=== PATIENT | female | born 1955 | race Caucasian/White ===

== ENCOUNTER 2017-12-25 10:58 | Emergency (ER) | payer BC ==
--- NOTE | 2017-12-25 11:45 | Emergency Department Record ---
History of Present Illness - General Chief complaint: Extremity Problem Stated complaint: RIGHT ANKLE INJURY Time Seen by Provider: 12/25/17 11:40 Source: Patient Mode of Arrival: Ambulatory Limitations: No limitations - History of Present Illness Initial comments: 62 yo female presents with a tender, swollen right ankle. She injured the ankle last night playing around. She has mid ankle pain. She is swollen and bruised. Her foot is swollen and bruised but no pain. No prior ankle fracture. No other injuries. MD Complaint: Joint pain -: Days(s) (1) Location: Right -: Yes Arthralgia Radiation: Distal Quality: Aching Consistency: Constant Improves with: Immobilization Worsens with: Palpation, Walking, Weight bearing Associated Symptoms: Denies other symptoms - Related Data Home Medications Medication Instructions Recorded Confirmed Last Taken Levothyroxine Sodium [Synthroid] 137 mcg PO DAILY 12/25/17 12/25/17 Unknown Metoprolol Tartrate [Lopressor] 50 mg PO BID 12/25/17 12/25/17 Unknown Previous Rx's Medication Instructions Recorded Hydrocodone/Acetaminophen [Alpena 1 tab PO Q6H PRN #30 tab 12/25/17 5mg/325mg] Allergies Allergy/AdvReac Type Severity Reaction Status Date / Time No Known Drug Allergies Allergy Verified 12/25/17 11:43 Review of Systems Constitutional: Denies: Chills, Fever, Malaise, Weakness Eyes: Denies: Eye discharge, Eye pain, Photophobia ENT: Denies: Congestion, Throat pain Respiratory: Denies: Cough, Dyspnea, Hemoptysis, Stridor Cardiovascular: Denies: Chest pain, Palpitations, Syncope Endocrine: Denies: Fatigue Gastrointestinal: Denies: Abdominal pain, Diarrhea, Nausea, Vomiting Genitourinary: Denies: Dysuria, Urgency Musculoskeletal: Reports: Arthralgia, Joint swelling Skin: Reports: Change in color (bruising) Neurological: Denies: Confusion, Headache Psychiatric: Denies: Anxiety Hematological/Lymphatic: Denies: Anemia, Blood Clots, Easy bleeding, Easy bruising, Swollen glands Physical Exam - General General Appearance: Alert, Oriented x3, Cooperative, No acute distress Limitations: No limitations - Head Head exam: Normal inspection - Eye Eye exam: Normal appearance, PERRL. negative: Conjunctival injection, Scleral icterus - ENT ENT exam: Normal exam, Mucous membranes moist Ear exam: Normal external inspection Nasal Exam: Normal inspection Mouth exam: Normal external inspection - Neck Neck exam: Normal inspection - Cardiovascular Cardiovascular Exam: Regular rate, Normal rhythm, Normal heart sounds Peripheral Pulses: 2+: Dorsalis Pedis (R) - Rectal Rectal exam: Deferred - exam: Deferred - Extremities Extremities exam: Full ROM, Joint swelling, Normal capillary refill, Pedal edema , Tenderness. negative: Normal inspection Image of Feet: 1 - bruising with mild swelling, intact skin and pulses. tender mid distal ankle, no 5th MT tenderness. - Back Back exam: Denies: CVA tenderness (R), CVA tenderness (L) - Neurological Neurological exam: Alert, Oriented X3. negative: Motor sensory deficit - Psychiatric Psychiatric exam: Normal affect, Normal mood - Skin Skin exam: Other (bruising) Course - Reevaluation(s) Reevaluation #1: 12/25/17 11:45 NOTE Patient declined initial pain mediation asking for ICE XR of the right foot and ankle ordered 12/25/17 12:04 Lateral comminuted malleolar fracture on XR, ankle mortise intact, non displace distal tibia fracture, no posterior fracture 12/25/17 12:24 Reagan Cabrera of orthopedics He will see the patient Monday in the office She is stricly non weight bearing with a [employer] boot 12/25/17 16:43 Disposition Disposition: Discharge Clinical Impression: Closed malleolar fracture Qualifiers: Encounter type: initial encounter Laterality: right Qualified Code(s): S82.891A - Other fracture of right lower leg, initial encounter for closed fracture Tibia fracture Qualifiers: Encounter type: initial encounter Tibia location: distal Fracture alignment: nondisplaced Disposition: Home, Self-Care Condition: (1) Good Instructions: Ankle Fracture (ED) Additional Instructions: Keep the ankle elevated to prevent swelling Ice 3 times daily Use the boot and crutches NO walking or weight bearing Prescriptions: Hydrocodone/Acetaminophen [Alpena 5mg/325mg] 1 tab PO Q6H PRN #30 tab PRN Reason: Pain - General Referrals: BLANCO CABRERA [DOCTOR OF OSTEOPATH] - [facility] [Provider Group] Forms: Patient Portal Access Time of Disposition: 12:08 Quality - Quality Measures Quality Measures: N/A - Blood Pressure Screening Does Patient Have Any of the Following: No Blood Pressure Classification: Pre-Hypertensive BP Reading Systolic Measurement: 130 Diastolic Measurement: 81 Screening for High Blood Pressure: < Pre-Hypertensive BP, F/U Documented > [ [id number]] Pre-Hypertensive Follow-up Interventions: Referral to alternative/primary care provider.
--- NOTE | 2017-12-25 13:33 | RADIOLOGY REPORT ---
EXAM: RIGHT ANKLE HISTORY: PATIENT TRIPPED AND FELL LAST NIGHT WITH PAIN RIGHT FOOT AND ANKLE. TECHNIQUE: Four views of the right ankle were obtained. Comparison: No prior right ankle series with which to compare. Encounter: Initial. FINDINGS: There is a comminuted fracture of the distal metaphysis of the fibula with a dominant comminuted fracture fragment of approximately 3 cm in length displaced laterally particularly along the distal aspect of the fracture fragment. Some soft tissue swelling diffusely about the ankle particularly laterally. There also appears to be an essentially undisplaced fracture of the medial malleolus which may be comminuted as well with a fracture line seen both somewhat obliquely somewhat distally along the medial malleolus and another fracture line higher up along the distal metaphyseal region of the distal tibia medially. A small posterior malleolar fracture is difficult to exclude as well. No dislocation at the ankle evident. IMPRESSION: COMMINUTED BIMALLEOLAR FRACTURE OF THE ANKLE WITH SOFT TISSUE SWELLING PARTICULARLY LATERALLY AND ANTERIORLY. SMALL UNDISPLACED POSTERIOR MALLEOLAR FRACTURE DIFFICULT TO ABSOLUTELY EXCLUDE WELL. JOB NUMBER: [id number] [facility]
--- NOTE | 2017-12-25 13:36 | RADIOLOGY REPORT ---
EXAM: RIGHT FOOT HISTORY: PATIENT TRIPPED AND FELL LAST NIGHT WITH PAIN RIGHT FOOT AND ANKLE. TECHNIQUE: Three views of the right foot were obtained. Comparison: No prior right foot series. Encounter: Initial. FINDINGS: There are comminuted fractures of the distal tibia and fibula as reported in the right ankle series from today. Soft tissue swelling about the ankle particularly laterally extending into the lateral aspect of the hindfoot. No definite fracture of the right foot itself identified. No dislocation seen. IMPRESSION: ANKLE FRACTURES WITH ASSOCIATED SOFT TISSUE SWELLING. NO DEFINITE FRACTURE OF THE RIGHT FOOT ITSELF IDENTIFIED. JOB NUMBER: [id number] [facility]
== END 2017-12-25 12:51 | disposition home or self-care (01) ==
LOC: ER 10:58
DX: S82.841A Displaced bimalleolar fracture of right lower leg, initial encounter for closed fracture (principal); S82.301A Unspecified fracture of lower end of right tibia, initial encounter for closed fracture; W01.0XXA Fall on same level from slipping, tripping and stumbling without subsequent striking against object, initial encounter; I10 Essential (primary) hypertension; F17.210 Nicotine dependence, cigarettes, uncomplicated
CPT/HCPCS: 99283; 99284